=== PATIENT | male | born 1990 ===

== ENCOUNTER 2021-04-28 16:16 | Emergency (ER) | payer OTHER ==
[~2021-04-28] VITALS: Ht 175.3 cm; Wt 72.6 kg
[2021-04-28] MEDS ORDERED: KETOROLAC TROMETHAMINE 30 MG/ML VIAL IV STA (17:58)
[2021-04-28] MEDS ORDERED: SODIUM CHLORIDE 0.9% 1000ML 1,000 ML IV SCH (18:00)
[2021-04-28] MEDS ORDERED: KETOROLAC TROMETHAMINE 30 MG/ML VIAL ONE (18:48)
[2021-04-28] MEDS ORDERED: SODIUM CHLORIDE 0.9% 1000ML 1,000 ML ONE (18:48)
[2021-04-28] MEDS ORDERED: LEVSIN-SL0.125 MG SL (20:09)
[2021-04-28 20:23] VITALS: BP 142/86
== END 2021-04-28 20:23 | disposition home or self-care (01) ==
LOC: FSED 17:52
DX: R10.32 Left lower quadrant pain (principal); F17.210 Nicotine dependence, cigarettes, uncomplicated
CPT/HCPCS: 74177; 80048; 80076; 81003; 85025; 99284; J1885; J7030